=== PATIENT | male | born 1945 | race Caucasian/White ===

== ENCOUNTER → 2019-10-18 | Outpatient (CLI) | payer OTHER ==
[~2019-10-18] MED LIST: ALLO300T2 PO; ATOR40TA71 PO; DEXL60CA3 PO; HYDR-4068 PO; LISI10TA7 PO; MORP30CP13 PO; OXYC40TA57 PO; PROSTA-METTO; Polyethylene Glycol 3350 PO; RIVA10TA PO; TAMS0.4C32 PO
== END | disposition home or self-care (01) ==
LOC: RAH 12:56
PROVIDERS: ATTEND Physical Medicine & Rehabilitation
DX: M47.812 Spondylosis without myelopathy or radiculopathy, cervical region (principal)
CPT/HCPCS: 72052

== ENCOUNTER 2020-10-07 05:56 | Day surgery (SDC) | payer OTHER ==
[2020-10-02 10:26] LABS: BASOPHILS % (AUTO) 0.7 % (0.0-5.0); EOSINOPHILS % (AUTO) 1.1 % (0.0-8.0); MEAN CORPUSCULAR HEMOGLOBIN 31.1 pg (27.0-33.0); MEAN CORPUSCULAR HGB CONC 33.2 g/dL (32.0-36.0); MEAN CORPUSCULAR VOLUME 93.8 fL (79-99); MONOCYTES % (AUTO) 8.9 % (3.0-13.0); NEUTROPHILS % (AUTO) 57.1 % (40.0-77.0); PLATELET COUNT (AUTO) 207 K/uL (130-400); RED BLOOD CELL COUNT(AUTO) 4.05 MIL/uL (4.50-6.20); RED CELL DISTRIBUTION WIDTH 13.7 % (11.0-15.5); WHITE BLOOD COUNT (AUTO) 5.4 K/uL (4.8-10.8)
[2020-10-02 10:35] LABS: POTASSIUM 4.3 mmol/L (3.5-5.1)
[2020-10-06 09:02] VITALS: BP 111/57
[2020-10-07] VITALS (11 sets, daily range): BP systolic 100–125; BP diastolic 55–69
[~2020-10-07] VITALS: Ht 175.3 cm; Wt 84.3 kg
[~2020-10-07 05:56] MED LIST changes: +ASCO100031 PO; -ATOR40TA71 PO; +BIOT10005 PO; +CHOL2000 PO; -DEXL60CA3 PO; +DONE5TAB33 PO; +GING550C5 PO; -HYDR-4068 PO; +IRON PO; +LISI10TA24 PO; -LISI10TA7 PO; +MAGN250T10 PO; -MORP30CP13 PO; -OXYC40TA57 PO; +PHARMACY COMMUNICATION MISC SCH; -PROSTA-METTO; -Polyethylene Glycol 3350 PO; -RIVA10TA PO; -TAMS0.4C32 PO
[2020-10-07] MEDS: CEFAZOLIN SODIUM 1 GM VIAL IVP SCH ×2 (06:00→07:30)
[2020-10-07] MEDS ORDERED: LACTATED RINGERS 1000ML 1,000 ML IV ONE (06:32)
[2020-10-07] MEDS ORDERED: MIDAZOLAM HCL 1 MG/ML 2ML VIAL ONE (06:48)
[2020-10-07] MEDS ORDERED: FENTANYL CITRATE PF 50 MCG/1 ML 2ML VIAL ONE (06:48)
[2020-10-07] MEDS ORDERED: PROPOFOL 10 MG/ML 20ML VIAL IV ONE (06:53)
== END 2020-10-07 09:40 | disposition home or self-care (01) ==
LOC: DAH 05:56
PROVIDERS: ATTEND Neurological Surgery
DX: G56.01 Carpal tunnel syndrome, right upper limb (principal); Z20.822 Contact with and (suspected) exposure to COVID-19; I10 Essential (primary) hypertension; M19.90 Unspecified osteoarthritis, unspecified site; Z79.899 Other long term (current) drug therapy; Z98.890 Other specified postprocedural states
CPT/HCPCS: 36415; 64721; 80051; 85025; 93005; A4215; A4221; A4222; A4223 ×2; A4663; A6260; C9803; J0690; J2250; J2704; J3010; J7120; U0003

== ENCOUNTER 2022-03-30 11:38 | Emergency (ER) | payer OTHER ==
[~2022-03-30] VITALS: Ht 175.3 cm; Wt 86.2 kg
[~2022-03-30 11:38] MED LIST changes: -PHARMACY COMMUNICATION MISC SCH
[2022-03-30] MEDS ORDERED: FAMOTIDINE 20MG VIAL IV STA (11:42)
[2022-03-30] MEDS ORDERED: SOLU-MEDROL 125MG VIAL IVP STA (11:42)
[2022-03-30] MEDS ORDERED: DiphenhydrAMINE HCL 50 MG/ML VIAL IV STA (11:42)
[2022-03-30 12:18] LABS: BASOPHILS % (AUTO) 0.3 % (0.0-5.0); EOSINOPHILS % (AUTO) 0.3 % (0.0-8.0); LYMPHOCYTES % (AUTO) 11.5 % (21.0-51.0); MEAN CORPUSCULAR HEMOGLOBIN 32.5 pg (27.0-33.0); MEAN CORPUSCULAR VOLUME 95.5 fL (79-99); NEUTROPHILS % (AUTO) 83.5 % (40.0-77.0); PLATELET COUNT (AUTO) 238 K/uL (130-400); RED BLOOD CELL COUNT(AUTO) 4.19 MIL/uL (4.50-6.20); RED CELL DISTRIBUTION WIDTH 14.9 % (11.0-15.5); WHITE BLOOD COUNT (AUTO) 13.5 K/uL (4.8-10.8)
[2022-03-30 12:25] LABS: CREATININE 0.9 mg/dL (0.5-1.5); POTASSIUM 4.6 mmol/L (3.5-5.1)
[2022-03-30 12:29] LABS: TOTAL PROTEIN, SERUM 6.9 g/dL (6.0-8.3)
[2022-03-30] MEDS ORDERED: DEXAMETHASONE SOD PHOSPHATE 4 MG/ML 1ML VIAL IM STA (13:08)
[2022-03-30] MEDS ORDERED: 0.9%NACL 1000ML 1,000 ML IV ONE (13:30)
[2022-03-30] MEDS ORDERED: PREDNISOLONE 15 MG/5 ML SOLN PO SCH (15:00)
[2022-03-30] MEDS ORDERED: DEXA0.5T2 PO (15:23)
[2022-03-30] MEDS ORDERED: LORA10TA7 PO (15:23)
[2022-03-30 15:27] VITALS: BP 122/68
== END 2022-03-30 15:30 | disposition home or self-care (01) ==
LOC: EDH 11:38
DX: T78.49XA Other allergy, initial encounter (principal); I10 Essential (primary) hypertension; E86.0 Dehydration; I95.9 Hypotension, unspecified; Z88.1 Allergy status to other antibiotic agents; Z88.2 Allergy status to sulfonamides; Z79.52 Long term (current) use of systemic steroids; X58.XXXA Exposure to other specified factors, initial encounter
CPT/HCPCS: 99284; 80053; 85025; 36415; 96372; 96374; 96361; 96375; J1100; J1200; J3490; J7030; J2930

== ENCOUNTER → 2022-04-21 | Outpatient (CLI) | payer OTHER ==
[~2022-04-21] MED LIST changes: +DEXA0.5T2 PO; +LORA10TA7 PO
== END | disposition home or self-care (01) ==
LOC: RAH 11:19
PROVIDERS: ATTEND Student in an Organized Health Care Education/Training Program
DX: M19.012 Primary osteoarthritis, left shoulder (principal); M75.42 Impingement syndrome of left shoulder
CPT/HCPCS: 73221